=== PATIENT | male | born 1965 | race Caucasian/White ===

== ENCOUNTER 2020-06-10 02:44 | Inpatient (IN) | payer MEDICARE, OTHER ==
[~2020-06-10] VITALS: Ht 175.3 cm; Wt 145.4 kg
[~2020-06-10 02:44] MED LIST: ADVIL200 M1 PO; AMITRIPTYLINE H10 MG PO; DILTIAZEM 24HR240 M1 PO; GABAPENTIN300 MG PO; LINZESS290 MCG PO; NOVOLOG MI100 UNIT/2 SC; RANITIDINE HCL150 MG PO; VASOTEC 10 MG T10 MG PO
[2020-06-11] MEDS ORDERED: NOVOLOG MI100 UNIT/2 SC (01:19)
[2020-06-11] MEDS ORDERED: FAMOTIDINE20 MG PO (01:20)
[2020-06-11] MEDS ORDERED: ASPIRIN81 MG PO (01:20)
[2020-06-11] MEDS ORDERED: HUMULIN 70100 UNIT/1 SC ×2 (01:21)
[2020-06-11 03:33] LABS: HEMOGLOBIN 13.7 gm/dl (14.0-17.5); RED BLOOD COUNT 5.09 M/UL (4.20-5.50); WHITE BLOOD COUNT 10.1 K/UL (4.5-11.0)
[2020-06-11 03:53] LABS: BUN/CREATININE RATIO 19 (0-10)
--- NOTE | 2020-06-11 10:00 | NUR ---
UPON ENTERING ROOM, PATIENT NOTED WITH URINE ON BSD TABLE AND FLOOR. BATH BASINE NOTED ON TABLE WITH URINE NOTED. PATIENT STATES THAT HE HAD TO USE THAT FOR UNINATION BECAUSE HE COULD NOT USE THE URINAL.
--- NOTE | 2020-06-11 13:34 | NUR ---
PATIENT HAVE ANXIOUS EPISODE, HAVING TROUBLE BREATHING O2 97% VIA O2 ON NC. PATIENT NOTED WITH INCREASE ANXIETY, PULLS THROUGH AND IS ALERT AND ORIENTATED AT THIS TIME. VS ARE STABLE. PATIENT SITTING ON SIDE OF BED, C/O UPPER BACK PAIN BY SHOULDER MD AWARE, ORDERS OBTAINED.
--- NOTE | 2020-06-11 14:34 | NUR ---
PATIENT CALLED OUT FOR NURSE, UPON ENTERING ROOM PATIENT IS C/O ANXIOUS EPISODE ONCE MORE, STATES"I BELIEVE IT'S WHERE MY DAUGHTER LEFT, IT'S LIKE I'M MISSING HER OR SOMETHING." PATIENT CALMNED DOWN, VS STABLE AT THIS TIME. NOTED THAT WHEN PATIENT BECOMES ANXIOUS HE ATTEMPTS TO BARE DOWN CAUSING HR TO INCREASE AND O2 LOWER ON MONITOR, NOTED GRIPPING SIDERAILS UNTIL KNUCKLES ARE PALE. CAN GET PATIENT TO CALM DOWN ONCE YOU TALK TO HIM TO WHERE HE CAN GET HIS MIND OFF OF WHAT HIS TRIGGER IS.
--- NOTE | 2020-06-11 15:28 | NUR ---
PATIENT NOTED BECOMING ANXIOUS OVER MONITOR SOUNDS, STARTED TO BECOME ANGRY WHEN I EXPLAINED THAT I COULD NOT TURN THEM DOWN OR OFF. STATED"WELL IF YOU HAD TO LISTEN TO THEM ALL DAY AND ALL NIGHT YOU WOULD BE THE SAME WAY" EXPLAINED THAT I UNDERSTOOD, AND THAT I WAS SORRY THAT I COULD NOT TURN THEM OFF OR DOWN, STARTED TO CALM DOWN, BECAME LESS ANXIOUS.
[2020-06-13 03:27] LABS: RED BLOOD COUNT 4.79 M/UL (4.20-5.50); WHITE BLOOD COUNT 9.5 K/UL (4.5-11.0)
[2020-06-13 03:33] LABS: BUN/CREATININE RATIO 26 (0-10)
[2020-06-14] MEDS ORDERED: BUSPAR 10MG10 MG PO (10:04)
[2020-06-14] MEDS ORDERED: CLOPIDOGREL75 MG PO (10:04)
[2020-06-14] MEDS ORDERED: CHRONULAC20 GM/30 M PO (10:04)
[2020-06-14] MEDS ORDERED: METOPROLOL SUC100 MG PO (10:04)
[2020-06-14] MEDS ORDERED: VASOTEC 10 MG T10 MG PO (10:04)
[2020-06-14] MEDS ORDERED: ALDACTONE 25MG25 MG PO (10:08)
[2020-06-14] MEDS ORDERED: ELIQUIS5 MG PO (10:17)
[2020-06-14 16:25] LABS: HEMOGLOBIN 12.7 gm/dl (14.0-17.5); RED BLOOD COUNT 4.74 M/UL (4.20-5.50); WHITE BLOOD COUNT 10.4 K/UL (4.5-11.0)
[2020-06-14 16:46] LABS: BUN/CREATININE RATIO 32 (0-10)
[2020-06-15 06:32] LABS: HEMOGLOBIN 13.3 gm/dl (14.0-17.5); RED BLOOD COUNT 4.96 M/UL (4.20-5.50); WHITE BLOOD COUNT 8.6 K/UL (4.5-11.0)
[2020-06-15 06:50] LABS: BUN/CREATININE RATIO 35 (0-10)
[2020-06-16 06:21] LABS: BUN/CREATININE RATIO 32 (0-10)
[2020-06-16 06:34] LABS: HEMOGLOBIN 12.6 gm/dl (14.0-17.5); RED BLOOD COUNT 4.77 M/UL (4.20-5.50); WHITE BLOOD COUNT 10.7 K/UL (4.5-11.0)
[2020-06-17 05:17] LABS: BUN/CREATININE RATIO 26 (0-10)
[2020-06-17 07:04] LABS: HEMOGLOBIN 12.6 gm/dl (14.0-17.5); RED BLOOD COUNT 4.66 M/UL (4.20-5.50); WHITE BLOOD COUNT 12.6 K/UL (4.5-11.0)
[2020-06-18 04:39] LABS: HEMOGLOBIN 13.1 gm/dl (14.0-17.5); RED BLOOD COUNT 4.87 M/UL (4.20-5.50); WHITE BLOOD COUNT 11.4 K/UL (4.5-11.0)
[2020-06-18 04:54] LABS: BUN/CREATININE RATIO 24 (0-10)
[2020-06-19 06:20] LABS: BUN/CREATININE RATIO 21 (0-10)
[2020-06-19 10:57] LABS: HEMOGLOBIN 13.6 gm/dl (14.0-17.5); RED BLOOD COUNT 5.13 M/UL (4.20-5.50)
[2020-06-19 10:59] LABS: WHITE BLOOD COUNT 15.4 K/UL (4.5-11.0)
[2020-06-20 05:15] LABS: HEMOGLOBIN 13.2 gm/dl (14.0-17.5); RED BLOOD COUNT 4.97 M/UL (4.20-5.50)
[2020-06-20 05:20] LABS: WHITE BLOOD COUNT 10.4 K/UL (4.5-11.0)
[2020-06-20 05:35] LABS: BUN/CREATININE RATIO 26 (0-10)
[2020-06-21 05:42] LABS: HEMOGLOBIN 13.9 gm/dl (14.0-17.5); RED BLOOD COUNT 5.11 M/UL (4.20-5.50); WHITE BLOOD COUNT 10.9 K/UL (4.5-11.0)
[2020-06-21 06:04] LABS: BUN/CREATININE RATIO 25 (0-10)
[2020-06-22 07:33] LABS: HEMOGLOBIN 12.7 gm/dl (14.0-17.5); RED BLOOD COUNT 4.74 M/UL (4.20-5.50); WHITE BLOOD COUNT 9.2 K/UL (4.5-11.0)
[2020-06-22 08:04] LABS: BUN/CREATININE RATIO 29 (0-10)
[2020-06-23 03:18] LABS: HEMOGLOBIN 13.8 gm/dl (14.0-17.5); RED BLOOD COUNT 5.15 M/UL (4.20-5.50); WHITE BLOOD COUNT 9.7 K/UL (4.5-11.0)
[2020-06-23 03:53] LABS: BUN/CREATININE RATIO 36 (0-10)
[2020-06-24 09:44] LABS: HEMOGLOBIN 14.5 gm/dl (14.0-17.5); RED BLOOD COUNT 5.36 M/UL (4.20-5.50); WHITE BLOOD COUNT 11.9 K/UL (4.5-11.0)
[2020-06-24 10:03] LABS: BUN/CREATININE RATIO 37 (0-10)
[2020-06-25 05:31] LABS: HEMOGLOBIN 15.4 gm/dl (14.0-17.5); RED BLOOD COUNT 5.74 M/UL (4.20-5.50); WHITE BLOOD COUNT 11.9 K/UL (4.5-11.0)
[2020-06-25 06:26] LABS: BUN/CREATININE RATIO 39 (0-10)
[2020-06-26 09:31] LABS: HEMOGLOBIN 15.4 gm/dl (14.0-17.5); RED BLOOD COUNT 5.7 M/UL (4.20-5.50); WHITE BLOOD COUNT 13.6 K/UL (4.5-11.0)
[2020-06-26 10:03] LABS: BUN/CREATININE RATIO 37 (0-10)
[2020-06-27 06:36] LABS: HEMOGLOBIN 15.9 gm/dl (14.0-17.5); RED BLOOD COUNT 5.79 M/UL (4.20-5.50); WHITE BLOOD COUNT 14.9 K/UL (4.5-11.0)
[2020-06-27 07:16] LABS: BUN/CREATININE RATIO 37 (0-10)
[2020-06-28 03:49] LABS: HEMOGLOBIN 15.6 gm/dl (14.0-17.5); RED BLOOD COUNT 5.76 M/UL (4.20-5.50)
[2020-06-28 04:01] LABS: BUN/CREATININE RATIO 46 (0-10)
--- NOTE | 2020-06-28 15:10 | NUR ---
PATIENTS FATHER NOTIFIED STAFF THAT THE PATIENT WAS TRYING TO GET UP FROM THE BED. UPON ENTERING THE ROOM PATIENT WAS FOUND TO HAVE LEGS THROWN OVER THE SIDE OF THE BED AND ATTEMPTING TO GET UP. PATIENT IS CONFUSED TO PLACE AND TIME. NURSING BEGAN TO HELP STRAIGHTEN THE PATIENT UP BACK IN THE BED WHEN HE ATTEMPTED TO HIS MYSELF IN THE HEAD. EILEEN VERA RN WAS ALSO IN THE ROOM ASSISTING. MD WAS NOTIFIED OF PATIENTS INCREASING AGGITATION AND MD CAME TO BEDSIDE. ORDERS WERE RECEIVED.
[2020-06-29 04:36] LABS: HEMOGLOBIN 16.6 gm/dl (14.0-17.5); RED BLOOD COUNT 6.16 M/UL (4.20-5.50); WHITE BLOOD COUNT 13.7 K/UL (4.5-11.0)
[2020-06-29 04:46] LABS: BUN/CREATININE RATIO 44 (0-10)
[2020-06-30 10:04] LABS: HEMOGLOBIN 16.4 gm/dl (14.0-17.5); RED BLOOD COUNT 6.14 M/UL (4.20-5.50); WHITE BLOOD COUNT 14.4 K/UL (4.5-11.0)
[2020-06-30 10:49] LABS: BUN/CREATININE RATIO 47 (0-10)
--- NOTE | 2020-06-30 18:32 | NUR ---
PATIENT NOTED ON KNEES IN FLOOR LEANING ON HIS BED ASKING STAFF TO LIFT HIM BACK INTO BED, PATIENT IS WEAK AND UNABLE TO HELP RETURN SELF BACK TO BED. DR LE IS INFORMED OF FALL AND V/S NEW ORDERS ARE NOTED. IS INFORMED ALSO
[2020-07-01 03:20] LABS: RED BLOOD COUNT 6.18 M/UL (4.20-5.50); WHITE BLOOD COUNT 15.7 K/UL (4.5-11.0)
[2020-07-02 07:16] LABS: HEMOGLOBIN 16.5 gm/dl (14.0-17.5); RED BLOOD COUNT 6.06 M/UL (4.20-5.50)
--- NOTE | 2020-07-02 19:19 | NUR ---
INSERTED DOBHOFF AT 1800. PT TOLERATED WELL.
[2020-07-03 08:52] LABS: WHITE BLOOD COUNT 12.6 K/UL (4.5-11.0)
[2020-07-03 08:55] LABS: HEMOGLOBIN 18.7 gm/dl (14.0-17.5); RED BLOOD COUNT 6.82 M/UL (4.20-5.50)
--- NOTE | 2020-07-03 17:25 | NUR ---
20G X 10CM MIDLINE PLACED IN RIGHT BASILIC VEIN. MIDLINE APPROVED BY DR. MAY.
--- NOTE | 2020-07-03 19:30 | NUR ---
CHANGED DRESSING ON PT RI FOOT. PT ALSO GOT A MIDLINE PLACED BY THE PICC LINE NURSE. MID LINE WAS PLACED WITH NO PROBLEM AND THE PATIENT TOLERATED IT WELL.
--- NOTE | 2020-07-04 17:05 | NUR ---
PATIENT IS BEING TRANSFERED TO [facility],REPORT CALLED TO TERRENCE
--- NOTE | 2020-07-04 18:29 | NUR ---
PT TRANSFERRED FROM [facility] IN STABLE CONDITION
[2020-07-06 11:37] LABS: RED BLOOD COUNT 6.2 M/UL (4.20-5.50); WHITE BLOOD COUNT 10.7 K/UL (4.5-11.0)
[2020-07-07 06:11] LABS: HEMOGLOBIN 17.2 gm/dl (14.0-17.5); RED BLOOD COUNT 6.18 M/UL (4.20-5.50); WHITE BLOOD COUNT 11.7 K/UL (4.5-11.0)
[2020-07-11 04:29] LABS: RED BLOOD COUNT 4.97 M/UL (4.20-5.50); WHITE BLOOD COUNT 6.3 K/UL (4.5-11.0)
[2020-07-11 04:50] LABS: BUN/CREATININE RATIO 26 (0-10)
[2020-07-12 06:29] LABS: WHITE BLOOD COUNT 7.6 K/UL (4.5-11.0)
[2020-07-12 06:32] LABS: RED BLOOD COUNT 5.56 M/UL (4.20-5.50)
[2020-07-12 06:54] LABS: BUN/CREATININE RATIO 17 (0-10)
[2020-07-13 05:25] LABS: HEMOGLOBIN 13.8 gm/dl (14.0-17.5); RED BLOOD COUNT 5.14 M/UL (4.20-5.50)
[2020-07-13 05:34] LABS: BUN/CREATININE RATIO 19 (0-10)
--- NOTE | 2020-07-13 08:50 | NUR ---
PATIENT REFUSED TO TAKE HIS CRUSHED MEDICATIONS AND WILL TAKE ALL MEDICATIONS NOT CRUSHED
[2020-07-14 06:57] LABS: RED BLOOD COUNT 5.24 M/UL (4.20-5.50); WHITE BLOOD COUNT 6.8 K/UL (4.5-11.0)
[2020-07-14 07:24] LABS: BUN/CREATININE RATIO 14 (0-10)
[2020-07-15 02:59] LABS: HEMOGLOBIN 12.8 gm/dl (14.0-17.5); RED BLOOD COUNT 4.74 M/UL (4.20-5.50); WHITE BLOOD COUNT 6.3 K/UL (4.5-11.0)
[2020-07-15 03:21] LABS: BUN/CREATININE RATIO 12 (0-10)
--- NOTE | 2020-07-15 09:47 | NUR ---
DR. ESCOBEDO AWARE OF PATIENT COMPLAINTS OF ABDOMINAL PAIN
[2020-07-15] MEDS ORDERED: ALDACTONE 25MG25 MG PO (10:59)
[2020-07-15] MEDS ORDERED: SANTYL OINT 3030 GM TOP (10:59)
[2020-07-15] MEDS ORDERED: HUMALOG 10100 UNITS/ SC (10:59)
[2020-07-15] MEDS ORDERED: POTASSIUM CHLO20 ME2 PO (10:59)
[2020-07-15] MEDS ORDERED: LANTUS INS100 UTS/M1 SC (10:59)
[2020-07-15] MEDS ORDERED: AMIODARONE HCL200 MG PO (10:59)
[2020-07-15] MEDS ORDERED: QUETIAPINE FUMA25 MG PO (10:59)
[2020-07-15] MEDS ORDERED: LIPITOR40 MG PO (10:59)
[2020-07-15] MEDS ORDERED: LOPRESSOR 50 MG50 MG PO (10:59)
[2020-07-15] MEDS ORDERED: FUROSEMIDE40 MG PO (10:59)
[2020-07-15] MEDS ORDERED: XIFAXAN 200 MG200 MG PO (10:59)
[2020-07-16 04:08] LABS: HEMOGLOBIN 12.8 gm/dl (14.0-17.5); RED BLOOD COUNT 4.78 M/UL (4.20-5.50); WHITE BLOOD COUNT 6.1 K/UL (4.5-11.0)
[2020-07-16 04:38] LABS: BUN/CREATININE RATIO 11 (0-10)
[2020-07-16] MEDS ORDERED: POTASSIUM CHLO20 ME2 PO (12:01)
[2020-07-16] MEDS ORDERED: BENTYL 10MG CAP10 MG PO (12:25)
== END 2020-07-16 16:18 | disposition home or self-care (01) | DRG 166 ==
LOC: PROG CARE 02:44 → M/S 06-13 11:42 → CCU 06-13 11:42 → PROG CARE 06-27 18:02 → M/S 07-04 17:44
PROVIDERS: Family Medicine; Internal Medicine; Internal Medicine Infectious Disease; Internal Medicine Interventional Cardiology; Internal Medicine Pulmonary Disease; Physician Assistant; ADMIT Internal Medicine
PROC: 5A09457 Assistance with Respiratory Ventilation, 24-96 Consecutive Hours, Continuous Positive Airway Pressure (ICD-10-PCS; 2020-06-13)
PROC: 5A1955Z Respiratory Ventilation, Greater than 96 Consecutive Hours (ICD-10-PCS; 2020-06-14)
PROC: 0BH17EZ Insertion of Endotracheal Airway into Trachea, Via Natural or Artificial Opening (ICD-10-PCS; 2020-06-14)
PROC: 0JBQ0ZZ Excision of Right Foot Subcutaneous Tissue and Fascia, Open Approach (ICD-10-PCS; 2020-07-02)
PROC: B24BZZZ Ultrasonography of Heart with Aorta (ICD-10-PCS; 2020-07-11)
PROC: 027034Z Dilation of Coronary Artery, One Artery with Drug-eluting Intraluminal Device, Percutaneous Approach (ICD-10-PCS; principal; 2020-07-13)
PROC: 4A023N7 Measurement of Cardiac Sampling and Pressure, Left Heart, Percutaneous Approach (ICD-10-PCS; 2020-07-13)
PROC: B2111ZZ Fluoroscopy of Multiple Coronary Arteries using Low Osmolar Contrast (ICD-10-PCS; 2020-07-13)
PROC: 4A0335C Measurement of Arterial Flow, Coronary, Percutaneous Approach (ICD-10-PCS; 2020-07-13)
DX: J96.22 Acute and chronic respiratory failure with hypercapnia (principal); K72.00 Acute and subacute hepatic failure without coma; G93.41 Metabolic encephalopathy; I21.4 Non-ST elevation (NSTEMI) myocardial infarction; J15.212 Pneumonia due to Methicillin resistant Staphylococcus aureus; I50.23 Acute on chronic systolic (congestive) heart failure; I13.0 Hypertensive heart and chronic kidney disease with heart failure and stage 1 through stage 4 chronic kidney disease, or unspecified chronic kidney disease; I48.19 Other persistent atrial fibrillation; Z68.43 Body mass index [BMI] 50.0-59.9, adult; E66.2 Morbid (severe) obesity with alveolar hypoventilation; L97.412 Non-pressure chronic ulcer of right heel and midfoot with fat layer exposed; F05 Delirium due to known physiological condition; M86.8X7 Other osteomyelitis, ankle and foot; N17.9 Acute kidney failure, unspecified; E87.0 Hyperosmolality and hypernatremia; R57.9 Shock, unspecified; E87.1 Hypo-osmolality and hyponatremia; I25.110 Atherosclerotic heart disease of native coronary artery with unstable angina pectoris; J96.21 Acute and chronic respiratory failure with hypoxia; Z20.822 Contact with and (suspected) exposure to COVID-19; I87.2 Venous insufficiency (chronic) (peripheral); E11.621 Type 2 diabetes mellitus with foot ulcer; E11.40 Type 2 diabetes mellitus with diabetic neuropathy, unspecified; K74.60 Unspecified cirrhosis of liver; I25.5 Ischemic cardiomyopathy; J04.10 Acute tracheitis without obstruction; B95.62 Methicillin resistant Staphylococcus aureus infection as the cause of diseases classified elsewhere; K75.81 Nonalcoholic steatohepatitis (NASH); E11.43 Type 2 diabetes mellitus with diabetic autonomic (poly)neuropathy; E78.5 Hyperlipidemia, unspecified; K31.84 Gastroparesis; M19.90 Unspecified osteoarthritis, unspecified site; E11.65 Type 2 diabetes mellitus with hyperglycemia; E11.69 Type 2 diabetes mellitus with other specified complication; B96.5 Pseudomonas (aeruginosa) (mallei) (pseudomallei) as the cause of diseases classified elsewhere; E11.22 Type 2 diabetes mellitus with diabetic chronic kidney disease; N18.9 Chronic kidney disease, unspecified; K21.9 Gastro-esophageal reflux disease without esophagitis; E87.6 Hypokalemia; D64.9 Anemia, unspecified; F41.9 Anxiety disorder, unspecified; Z90.49 Acquired absence of other specified parts of digestive tract; Z79.01 Long term (current) use of anticoagulants; Z79.82 Long term (current) use of aspirin; Z79.4 Long term (current) use of insulin; Z79.899 Other long term (current) drug therapy; Z83.3 Family history of diabetes mellitus; Z84.89 Family history of other specified conditions
CPT/HCPCS: ECHO; 31500; 36415; 36600; 70450; 71045; 78315; 80048; 80053; 80162; 80307; 81001; 82140; 82550; 82553; 82607; 82746; 82803; 82962; 83605; 83735; 83880; 84100; 84132; 84439; 84443; 84484; 85007; 85025; 85027; 85347; 85652; 86140; 87070; 87077; 87086; 87186; 87205; 87449; 87635; 92526; 92610; 93005; 93306; 94002; 94003; 94640; 94660; 94664; 94760; 97110; 97110-GP-CQ; 97112-GP-CQ; 97161; 97167; 97530; 97530-GP-CQ; 99152; 99153; A6212; A9503; C1725; C1751; C1769; C1874; C1887; C1894; C9600; G0378; G0379; J1120; J1160; J1205; J1335; J1644; J1940; J2020; J2060; J2250; J2405; J2543; J2550; J2704; J3010; J3480; J3486; J7030; J7040; J7050; J7070; Q9957; Q9967; U0002; U0003